=== PATIENT | female | born 2000 | race Caucasian/White ===

== ENCOUNTER 2023-07-07 03:42 | Emergency (ER) | payer OTHER, SELFPAY ==
--- NOTE | 2023-07-07 03:51 | ED.URI ---
HPI - URI/Sore Throat General Chief Complaint: Upper Respiratory Symptoms Stated Complaint: sore throat, difficulty breathing Time Seen by Provider: 07/07/23 03:44 Source: patient and RN notes reviewed Mode of arrival: Ambulatory Limitations: no limitations History of Present Illness HPI Narrative: 23-year-old female on Concerta has only daily medication for ADHD. Patient presents with about 5 days of nasal congestion, cough, sore throat, hoarseness and started developing some chest discomfort. Patient states no fevers. Has had little bit of ear pressure but no pain. Throat has been sore but no difficulty with breathing in the floor. Patient has been quite hoarse. Has had nonproductive cough. Feels tight some discomfort in the upper chest with cough. No nausea or vomiting. [place] short of breath when lying flat but felt better upright and with coughing. Patient denies any diarrhea constipation, no urinary symptoms. No abdominal back or flank pain. No rash. Patient states concerned as they are only daily medication. No prior surgeries. No known drug allergies. No tobacco, no alcohol, no illicit. Related Data Allergies Allergy/AdvReac Type Severity Reaction Status Date / Time No Known Drug Allergies Allergy Verified 07/07/23 04:13 Review of Systems Review of Systems ROS Unobtainable: All systems reviewed & are unremarkable except as noted in HPI and below Patient History Social History Smoking Status: Never smoker Exam Narrative Exam Narrative: GEN: well nourished, well appearing female, alert and oriented x 3, patient appears to be in mild distress. HEENT: Atraumatic, pupils are equal round reactive to light, extraocular movements are intact, nares are clear, TMs are clear with no fluid, left TM is slightly retracted, no bulge bilaterally with good light reflex bilaterally. There is no conjunctival pallor. Throat has mild bilateral tonsillar enlargement, no uvular deviation, bilateral cervical lymphadenopathy. Patient is quite hoarse, no stridor difficulty with swallowing secretions. No exudates on bilateral tonsils. HEART: Regular rate and rhythm without murmur, clicks, rubs. LUNGS:Lungs clear to auscultation, no wheezes, rales, crackles, chest moves symmetrically, no tachypnea, no accessory muscle use. Patient has a dry cough. ABD:bowel sounds normal, soft, non-tender, no guarding, rebound, rigidity, no masses noted, no hepatosplenomegaly :No CVA tenderness MSCL: Non-tender, no muscle atrophy, muscles strength 5/5 upper and lower extremities, full range of motion, normal gait NEURO:CN 2-12 intact, sensation normal SKIN: No rash, erythema or other skin changes noted. Initial Vital Signs Initial Vital Signs: Vital Signs Temperature 97.6 F 07/07/23 03:53 Pulse Rate 80 07/07/23 03:53 Respiratory Rate 15 07/07/23 03:53 Blood Pressure 142/83 H 07/07/23 03:53 Pulse Oximetry 99 07/07/23 03:53 Oxygen Delivery Method Room Air 07/07/23 03:53 Course Orders Ordered: ED Orders 07/07/23 03:50 Strep Grp A by PCR Rapid Stat Discontinued Medications Dexamethasone (Dexamethasone 10 Mg/Ml Vial) 10 mg PO NOW ONE Stop: 07/07/23 04:09 Last Admin: 07/07/23 04:13 Dose: 10 mg Vital Signs Vital signs: Vital Signs - 8 hr 07/07/23 03:53 07/07/23 04:23 Temperature 97.6 F 97.4 F L Pulse Rate 80 82 Respiratory Rate 15 18 Blood Pressure 142/83 H 127/83 Pulse Oximetry 99 98 Oxygen Delivery Method Room Air Room Air MDM - URI/Sore Throat Lab Data Labs: Lab Results 07/07/23 Range/Units 03:50 Group A Strep (PCR) Negative (Negative) MDM Narrative Medical decision making narrative: 23-year-old female who likely has viral pharyngitis, rapid strep was negative, throat culture was sent. Patient was given 1 dose of oral dexamethasone. No wheezing or other changes on examination that would make me suspect pneumonia. Patient and I reviewed throat culture will take several days to result if positive would be contacted for antibiotics was given a dose of oral dexamethasone. Patient did not meet [facility] Criteria for oral antibiotics. Discussed return precautions all questions answered. Discharge Plan Departure Patient Disposition: Home Clinical Impression: Pharyngitis Instructions: DI for Pharyngitis/Tonsillopharyngitis -- Adult Activity Restrictions/Additional Instructions: Follow-up for recheck as needed, your rapid strep was negative throat culture is currently pending this takes 2-3 days to result and if positive you will be contacted to start antibiotics. You did receive a dose of oral dexamethasone, 10 mg. You may take Tylenol up to a 1000 mg every 6 hours and/or ibuprofen up to 600 mg every 6 hours. Please return for rapidly worsening symptoms, fevers, swelling in throat, airway, inability to swallow your saliva or secretions, new or worsening chest pain or shortness of breath, persistent vomiting, passing out, new swelling in extremities, rash or skin changes or other new or concerning changes. Referrals: ProviderCaden [Primary Care Provider] - Stand Alone Forms: Patient Portal/API, Work Release Note
[2023-07-07 03:53] VITALS: BP 142/83; PULSE 80; RESP 15; TEMP 36.4; O2SAT 99; BMI 24.7
[2023-07-07 04:04] LABS: Strep Grp A by PCR Rapid Negative (Negative)
[2023-07-07] MEDS: DEXAMETHASONE 10 MG/ML VIAL PO (04:13)
[2023-07-07 04:23] VITALS: BP 127/83; PULSE 82; RESP 18; TEMP 36.3; O2SAT 98
== END 2023-07-07 04:28 | disposition home or self-care (01) ==
PROVIDERS: Emergency Provider Emergency Medicine
DX: J02.9 Acute pharyngitis, unspecified (principal)
CPT/HCPCS: 87651; 99283; J1100

== ENCOUNTER 2023-07-13 09:23 | Emergency (ER) | payer OTHER, SELFPAY ==
[2023-07-13 09:32] VITALS: BP 116/63; PULSE 110; RESP 16; TEMP 36.7; O2SAT 100; BMI 24.7
--- NOTE | 2023-07-13 09:37 | DI.RAD.S_ITS ---
PROCEDURE: XR CHEST 2V INDICATIONS: cough x 2 weeks TECHNIQUE: 2 views of the chest were acquired. COMPARISON: None. FINDINGS: Surgical changes and devices: None. Lungs and pleura: Lungs are clear. No pleural effusions or pneumothorax. Mediastinum: Mediastinal contours are normal. Heart size is normal. Bones and chest wall: No suspicious bony abnormalities. Soft tissues appear unremarkable. IMPRESSION: No acute cardiopulmonary abnormality is seen. Dictated by: Donnell Kenyon M.D. on 07/13/2023 at 10:17 Approved by: Donnell Kenyon M.D. on 07/13/2023 at 10:17
[2023-07-13] MEDS: ONDANSETRON 4 MG/2 ML INJ IV (10:00)
[2023-07-13] MEDS: SODIUM CHLORIDE 0.9% 1,000 ML 1000 ML IV (10:00)
[2023-07-13 10:05] VITALS: BP 100/63; PULSE 97; RESP 20; O2SAT 95
[2023-07-13 10:21] LABS: Hematocrit 37.7 % (36-46); Hemoglobin 12.8 g/dL (12.0-16.0); Mean Corpuscular Hemoglobin 30.3 PG (26-34); Mean Corpuscular Volume 89.1 fL (80-100); Platelet Count 310 X10^3/uL (150-400); Red Blood Cell Count 4.24 X10^6/uL (4.0-5.2); Red Cell Distribution Width 12.9 % (11.6-14.8); White Blood Cell Count 15.3 X10^3/uL (4.5-11.0)
[2023-07-13 10:23] LABS: Add Manual Diff / Slide Review YES
[2023-07-13 10:29] LABS: INR 1.4 (0.9-1.3); Prothrombin Time 15.6 SECONDS (10.1-12.7)
[2023-07-13 10:32] LABS: PTT Partial Thromboplastin Tim 28 SECONDS (26-36)
[2023-07-13 10:34] LABS: Lactate (Lactic Acid) 1.1 mmol/L (0.7-2.1)
[2023-07-13 10:35] LABS: Alanine Aminotransferase 21 IU/L (<35); Albumin 3.9 g/dL (3.5-5.0); Albumin Globulin Ratio 1.1 (1.0-2.8); Alkaline Phosphatase 70 U/L (38-126); Aspartate Aminotransferase 27 IU/L (14-36); BUN Creatinine Ratio 16.5 (6-22); Bilirubin Total 0.2 mg/dL (0.2-1.3); Blood Urea Nitrogen 13 mg/dL (7-17); Calcium 9.1 mg/dL (8.4-10.2); Carbon Dioxide 22 mmol/L (22-32); Chloride 98 mmol/L (98-107); Estimated Glomerular Filt Rate > 60 mL/min (>60); Globulin 3.5 g/dL (1.7-4.1); Glucose 106 mg/dL (70-100); HEMOLYSIS < 15 (0-50); Lipase 46 U/L (23-300); Potassium 3.8 mmol/L (3.4-5.1); Sodium 131 mmol/L (137-145); Total Protein 7.4 g/dL (6.3-8.2)
[2023-07-13 10:48] LABS: Adenovirus Not Detected (Not Detect); B. parapertussis Not Detected (Not Detecte); Bordetella pertussis Not Detected (Not Detect); Chlamydophila pneumoniae Not Detected (Not Detect); Coronavirus 229E Not Detected (Not Detect); Coronavirus HKU1 Not Detected (Not Detect); Coronavirus NL 63 Not Detected (Not Detect); Coronavirus OC43 Not Detected (Not Detect); Human Metapneumovirus Not Detected (Not Detect); Human Rhinovirus/Enterovirus Not Detected (Not Detect); Influenza A Not Detected (Not Detect); Influenza B Not Detected (Not Detect); Mycoplasma pneumoniae Not Detected (Not Detect); Parainfluenza Virus 1 Not Detected (Not Detect); Parainfluenza Virus 2 Not Detected (Not Detect); Parainfluenza Virus 3 Not Detected (Not Detect); Parainfluenza Virus 4 Not Detected (Not Detect); Respiratory Syncytial Virus Not Detected (Not Detect); SARS- CoV-2 Not Detected (Not Detecte)
[2023-07-13 10:52] LABS: Procalcitonin 0.37 ng/mL (<0.5)
[2023-07-13 10:54] LABS: Neutrophils Absolute Manual 12087 /uL (3000-5900); Total Cells Counted 100
[2023-07-13 10:55] LABS: RBC Morphology Normal Morphology
[2023-07-13 11:21] VITALS: BP 100/60; PULSE 83; RESP 18; TEMP 37.6; O2SAT 98
[2023-07-13 11:49] LABS: Bacteria Urine Moderate (10-30); RBC Urine 1-5/HPF (0-5/HPF); Squamous Epithelial Cell Urine 1-5 /HPF (0-5/HPF); WBC Urine 10-30/HPF (0-5/HPF)
[2023-07-13 14:58] VITALS: BP 113/65; PULSE 73; RESP 20; TEMP 36.9; O2SAT 99
--- NOTE | 2023-07-13 15:30 | ED_ITS ---
HPI - Fever <Sunita Peck PA-C - Last Filed: 07/13/23 15:37> General Chief Complaint: Fever Stated Complaint: sent by PCP for Upper Resp Symptoms Time Seen by Provider: 07/13/23 09:44 Source: patient Mode of arrival: Ambulatory History of Present Illness HPI Narrative: Patient is a 23-year-old with 2 weeks of sore throat and cough. Seen twice for the same over the past 2 weeks, treated with p.o. steroid for sore throat and [id number] cold medicines. She presents today after going to her primary care for assessment with a very hoarse voice, although her sore throat is improved, continued fevers especially at night, frequent cough that is becoming more dry, and generally not feeling well. She denies any chest pain, nausea vomiting, dysuria. She is only short of breath when coughing. Related Data Previous Rx's Medication Instructions Recorded codeine 10 mg-guaifenesin 100 mg/5 10 ml PO Q6H PRN cough #120 mL 07/13/23 mL oral liquid sulfamethoxazole 800 1 tab PO BID #10 tabs 07/13/23 mg-trimethoprim 160 mg tablet (Bactrim DS) Allergies Allergy/AdvReac Type Severity Reaction Status Date / Time No Known Drug Allergies Allergy Verified 07/07/23 04:13 Review of Systems <Sunita Peck PA-C - Last Filed: 07/13/23 15:37> Review of Systems ROS Unobtainable: All systems reviewed & are unremarkable except as noted in HPI and below Patient History <Sunita Peck PA-C - Last Filed: 07/13/23 15:37> Social History Smoking Status: Never smoker Smoking Status: Never smoker alcohol intake frequency: 0-2 drinks per day Substance Use Type: does not use Exam <Sunita Peck PA-C - Last Filed: 07/13/23 15:37> Narrative Exam Narrative: GENERAL: 23 year old patient appears stated age. Well-developed patient, in no distress. Appears fatigued. NEURO: AOx3. HEAD: Atraumatic. Normocephalic. EYES: Pupils equal round and reactive. Extraocular motions intact. No scleral icterus. No injection or drainage. ENT: Nose without bleeding or purulent drainage. Throat with erythema, no tonsillar hypertrophy or exudate. Airway patent. NECK: Trachea midline. Non tender CARDIOVASCULAR: Regular rate and rhythm without murmurs, gallops, or rubs. RESPIRATORY: Diminished but clear to auscultation. Breath sounds equal bilaterally. No wheezes, rales, or rhonchi. GASTROINTESTINAL: Abdomen soft, non-tender, nondistended. Positive right CVA tenderness. EXTREMITIES: No edema or joint tenderness. SKIN: No rash or erythema of visible areas Initial Vital Signs Initial Vital Signs: Vital Signs Temperature 98.1 F 07/13/23 09:32 Pulse Rate 110 H 07/13/23 09:32 Respiratory Rate 16 07/13/23 09:32 Blood Pressure 116/63 07/13/23 09:32 Pulse Oximetry 100 07/13/23 09:32 Oxygen Delivery Method Room Air 07/13/23 09:32 <Vianca Mace DO - Last Filed: 07/13/23 19:25> Initial Vital Signs Initial Vital Signs: Vital Signs Temperature 98.1 F 07/13/23 09:32 Pulse Rate 110 H 07/13/23 09:32 Respiratory Rate 16 07/13/23 09:32 Blood Pressure 116/63 07/13/23 09:32 Pulse Oximetry 100 07/13/23 09:32 Oxygen Delivery Method Room Air 07/13/23 09:32 Course <Sunita Peck PA-C - Last Filed: 07/13/23 15:37> Orders Ordered: ED Orders 07/13/23 11:30 Urine Culture Stat Urine Microscopic Stat Discontinued Medications Ceftriaxone Sodium (Ceftriaxone 2,000 Mg Vial) 1,000 mg IM NOW ONE Stop: 07/13/23 15:30 Last Admin: 07/13/23 15:44 Dose: Not Given Documented By: KLSheng Sodium Chloride (Normal Saline 0.9%) 1,000 mls @ 1,000 mls/hr IV BOLUS ONE Stop: 07/13/23 10:36 Last Infusion: 07/13/23 11:19 Dose: Infused Documented By: Admin: 07/13/23 10:00 Dose: 1,000 mls/hr Documented By: KLSheng Ceftriaxone Sodium 1,000 mg/ (Sodium Chloride) 100 mls @ 200 mls/hr IV NOW ONE Stop: 07/13/23 15:44 Last Infusion: 07/13/23 16:14 Dose: Infused Documented By: Admin: 07/13/23 15:50 Dose: 200 mls/hr Documented By: NYDIA Ondansetron HCl (Ondansetron 4 Mg/2 Ml Inj) 4 mg IV NOW PRN PRN Reason: Nausea And Vomiting Last Admin: 07/13/23 10:00 Dose: 4 mg Documented By: ROMAN Ondansetron HCl (Ondansetron 4 Mg Odt) 4 mg SL NOW PRN PRN Reason: Nausea And Vomiting Vital Signs Vital signs: Vital Signs - 8 hr 07/13/23 14:58 07/13/23 16:15 Temperature 98.4 F 98.5 F Pulse Rate 73 82 Respiratory Rate 20 18 Blood Pressure 113/65 108/68 Pulse Oximetry 99 98 Oxygen Delivery Method Room Air <Vianca Mace DO - Last Filed: 07/13/23 19:25> Orders Ordered: ED Orders 07/13/23 11:30 Urine Culture Stat Urine Microscopic Stat Discontinued Medications Ceftriaxone Sodium (Ceftriaxone 2,000 Mg Vial) 1,000 mg IM NOW ONE Stop: 07/13/23 15:30 Last Admin: 07/13/23 15:44 Dose: Not Given Documented By: ROMAN Sodium Chloride (Normal Saline 0.9%) 1,000 mls @ 1,000 mls/hr IV BOLUS ONE Stop: 07/13/23 10:36 Last Infusion: 07/13/23 11:19 Dose: Infused Documented By: Admin: 07/13/23 10:00 Dose: 1,000 mls/hr Documented By: ROMAN Ceftriaxone Sodium 1,000 mg/ (Sodium Chloride) 100 mls @ 200 mls/hr IV NOW ONE Stop: 07/13/23 15:44 Last Infusion: 07/13/23 16:14 Dose: Infused Documented By: Admin: 07/13/23 15:50 Dose: 200 mls/hr Documented By: NYDIA Ondansetron HCl (Ondansetron 4 Mg/2 Ml Inj) 4 mg IV NOW PRN PRN Reason: Nausea And Vomiting Last Admin: 07/13/23 10:00 Dose: 4 mg Documented By: ROMAN Ondansetron HCl (Ondansetron 4 Mg Odt) 4 mg SL NOW PRN PRN Reason: Nausea And Vomiting Vital Signs Vital signs: Vital Signs - 8 hr 07/13/23 14:58 07/13/23 16:15 Temperature 98.4 F 98.5 F Pulse Rate 73 82 Respiratory Rate 20 18 Blood Pressure 113/65 108/68 Pulse Oximetry 99 98 Oxygen Delivery Method Room Air MDM - Fever <Sunita Peck PA-C - Last Filed: 07/13/23 15:37> Lab Data 07/13/23 09:55 07/13/23 09:55 Labs: Lab Results 07/13/23 07/13/23 07/13/23 Range/Units 09:40 09:55 11:30 WBC 15.3 H (4.5-11.0) X10^3/uL RBC 4.24 (4.0-5.2) X10^6/uL Hgb 12.8 (12.0-16.0) g/dL Hct 37.7 (36-46) % MCV 89.1 (80-100) fL MCH 30.3 (26-34) PG MCHC 34.0 (30-36) % RDW 12.9 (11.6-14.8) % Plt Count 310 (150-400) X10^3/uL Neut % (Auto) Not Reportable Lymph % (Auto) Not Reportable Sawyer % (Auto) Not Reportable Eos % (Auto) Not Reportable Baso % (Auto) Not Reportable Lymph # (Auto) Not Reportable [place]yer # (Auto) Not Reportable Baso # (Auto) Not Reportable Total Counted 100 Seg Neutrophils % 79.0 H (38-70) % Lymphocytes % (Manual) 10.0 L (25-45) % Monocytes % (Manual) 10.0 (2-11) % Basophils % (Manual) 1.0 (0-1) % Neutrophils # (Manual) 15655 H (9991-4699) /uL RBC Morphology Normal morphology PT 15.6 H (10.1-12.7) SECONDS INR 1.4 H (0.9-1.3) APTT 28 (26-36) SECONDS Sodium 131 L (137-145) mmol/L Potassium 3.8 (3.4-5.1) mmol/L Chloride 98 (98-107) mmol/L Carbon Dioxide 22 (22-32) mmol/L BUN 13 (7-17) mg/dL Creatinine 0.79 (0.52-1.04) mg/dL Estimated GFR > 60 (>60) mL/min BUN/Creatinine Ratio 16.5 (6-22) Glucose 106 H (70-100) mg/dL Lactate 1.1 (0.7-2.1) mmol/L Calcium 9.1 (8.4-10.2) mg/dL Total Bilirubin 0.2 (0.2-1.3) mg/dL AST 27 (14-36) IU/L ALT 21 (<35) IU/L Alkaline Phosphatase 70 (38-126) U/L Total Protein 7.4 (6.3-8.2) g/dL Albumin 3.9 (3.5-5.0) g/dL Globulin 3.5 (1.7-4.1) g/dL Albumin/Globulin Ratio 1.1 (1.0-2.8) Lipase 46 (23-300) U/L Procalcitonin 0.37 (<0.5) ng/mL Urine RBC 1-5/hpf (0-5/HPF) Urine WBC 10-30/hpf H (0-5/HPF) Ur Squamous Epith Cells 1-5 /hpf (0-5/HPF) Urine Bacteria Moderate (10-30) H (None) Ur Culture Indicated? TNP Chlamy pneumoniae PCR Not detected (Not Detect) Adenovirus (PCR) Not detected (Not Detect) B.parapertussis DNA PCR Not detected (Not Detecte) Coronavirus OC43 (PCR) Not detected (Not Detect) Coronavirus HKU1 (PCR) Not detected (Not Detect) Coronavirus 229E (PCR) Not detected (Not Detect) SARS-CoV-2 (PCR) Not detected (Not Detecte) Coronavirus NL63 (PCR) Not detected (Not Detect) Human Metapneumovir PCR Not detected (Not Detect) Influenza Type A (PCR) Not detected (Not Detect) Influenza Type B (PCR) Not detected (Not Detect) M. pneumoniae (PCR) Not detected (Not Detect) Parainfluenza 1 (PCR) Not detected (Not Detect) Parainfluenza 2 (PCR) Not detected (Not Detect) Parainfluenza 3 (PCR) Not detected (Not Detect) Parainfluenza 4 (PCR) Not detected (Not Detect) RSV (PCR) Not detected (Not Detect) Entero/Rhino (PCR) Not detected (Not Detect) Point of Care Testing Test Results Negative Urine Dip Bedside Urine Glucose Negative Bedside Urine Bilirubin - Negative Bedside Urine Ketone +/- 5 Urine Specific [place] 1.010 Bedside Urine Occult Blood +/- Bedside Urine pH 6.0 Bedside Urine Protein - Negative Bedside Urine Urobilinogen +/- 1mg Bedside Urine Nitrite + Positive Bedside Urine Leukocytes +/- 15 Esterase Imaging Data Chest x-ray: Radiologist's Impression: PROCEDURE: XR CHEST 2V INDICATIONS: cough x 2 weeks TECHNIQUE: 2 views of the chest were acquired. COMPARISON: None. FINDINGS: Surgical changes and devices: None. Lungs and pleura: Lungs are clear. No pleural effusions or pneumothorax. Mediastinum: Mediastinal contours are normal. Heart size is normal. Bones and chest wall: No suspicious bony abnormalities. Soft tissues appear unremarkable. IMPRESSION: No acute cardiopulmonary abnormality is seen. Dictated by: Donnell Kenyon M.D. on 07/13/2023 at 10:17 Approved by: Donnell Kenyon M.D. on 07/13/2023 at 10:17 [facility] Narrative Medical decision making narrative: Multiple etiologies for patient's symptoms considered including, but not limited to: Pharyngitis, bronchitis, pneumonia, UTI, pyelonephritis Patient is a previously healthy 23-year-old who has had 2 weeks of upper respiratory symptoms that persist with daily fevers. She denies any travel overseas or any unusual exposures. She has had no rash. Her workup today shows a leukocytosis with white count 15k and left shift, otherwise labs without clinically significant abnormality. Chest x-ray without evidence of infiltrate or other pathology. Her urine does look infected although she denies any dysuria but she has significant right CVA tenderness on exam. Difficult to assess as she also has these upper respiratory symptoms but this maybe causing her continued fevers and malaise. We will treat for pyelonephritis with IM ceftriaxone now and p.o. antibiotics at home. Also prescribing codeine cough syrup for cough suppression. Work note given; I would advise her to stay home and rest as much as she possibly can until she is feeling better. If things do not improve after another 5 days, she should return for reassessment. Patient's symptoms improved over duration of stay with above-stated therapies. Findings and discharge diagnosis discussed with patient/family followed by verbalization of understanding Return precautions discussed with patient/family whom verbalize understanding of diagnosis and plan <Vianca Mace, DO - Last Filed: 07/13/23 19:25> Lab Data Labs: Lab Results 07/13/23 07/13/23 07/13/23 Range/Units 09:40 09:55 11:30 WBC 15.3 H (4.5-11.0) X10^3/uL RBC 4.24 (4.0-5.2) X10^6/uL Hgb 12.8 (12.0-16.0) g/dL Hct 37.7 (36-46) % MCV 89.1 (80-100) fL MCH 30.3 (26-34) PG MCHC 34.0 (30-36) % RDW 12.9 (11.6-14.8) % Plt Count 310 (150-400) X10^3/uL Neut % (Auto) Not Reportable Lymph % (Auto) Not Reportable Sawyer % (Auto) Not Reportable Eos % (Auto) Not Reportable Baso % (Auto) Not Reportable Lymph # (Auto) Not Reportable [place]yer # (Auto) Not Reportable Baso # (Auto) Not Reportable Total Counted 100 Seg Neutrophils % 79.0 H (38-70) % Lymphocytes % (Manual) 10.0 L (25-45) % Monocytes % (Manual) 10.0 (2-11) % Basophils % (Manual) 1.0 (0-1) % Neutrophils # (Manual) 68839 H (5002-1442) /uL RBC Morphology Normal morphology PT 15.6 H (10.1-12.7) SECONDS INR 1.4 H (0.9-1.3) APTT 28 (26-36) SECONDS Sodium 131 L (137-145) mmol/L Potassium 3.8 (3.4-5.1) mmol/L Chloride 98 (98-107) mmol/L Carbon Dioxide 22 (22-32) mmol/L BUN 13 (7-17) mg/dL Creatinine 0.79 (0.52-1.04) mg/dL Estimated GFR > 60 (>60) mL/min BUN/Creatinine Ratio 16.5 (6-22) Glucose 106 H (70-100) mg/dL Lactate 1.1 (0.7-2.1) mmol/L Calcium 9.1 (8.4-10.2) mg/dL Total Bilirubin 0.2 (0.2-1.3) mg/dL AST 27 (14-36) IU/L ALT 21 (<35) IU/L Alkaline Phosphatase 70 (38-126) U/L Total Protein 7.4 (6.3-8.2) g/dL Albumin 3.9 (3.5-5.0) g/dL Globulin 3.5 (1.7-4.1) g/dL Albumin/Globulin Ratio 1.1 (1.0-2.8) Lipase 46 (23-300) U/L Procalcitonin 0.37 (<0.5) ng/mL Urine RBC 1-5/hpf (0-5/HPF) Urine WBC 10-30/hpf H (0-5/HPF) Ur Squamous Epith Cells 1-5 /hpf (0-5/HPF) Urine Bacteria Moderate (10-30) H (None) Ur Culture Indicated? TNP Chlamy pneumoniae PCR Not detected (Not Detect) Adenovirus (PCR) Not detected (Not Detect) B.parapertussis DNA PCR Not detected (Not Detecte) Coronavirus OC43 (PCR) Not detected (Not Detect) Coronavirus HKU1 (PCR) Not detected (Not Detect) Coronavirus 229E (PCR) Not detected (Not Detect) SARS-CoV-2 (PCR) Not detected (Not Detecte) Coronavirus NL63 (PCR) Not detected (Not Detect) Human Metapneumovir PCR Not detected (Not Detect) Influenza Type A (PCR) Not detected (Not Detect) Influenza Type B (PCR) Not detected (Not Detect) M. pneumoniae (PCR) Not detected (Not Detect) Parainfluenza 1 (PCR) Not detected (Not Detect) Parainfluenza 2 (PCR) Not detected (Not Detect) Parainfluenza 3 (PCR) Not detected (Not Detect) Parainfluenza 4 (PCR) Not detected (Not Detect) RSV (PCR) Not detected (Not Detect) Entero/Rhino (PCR) Not detected (Not Detect) Point of Care Testing Test Results Negative Urine Dip Bedside Urine Glucose Negative Bedside Urine Bilirubin - Negative Bedside Urine Ketone +/- 5 Urine Specific [place] 1.010 Bedside Urine Occult Blood +/- Bedside Urine pH 6.0 Bedside Urine Protein - Negative Bedside Urine Urobilinogen +/- 1mg Bedside Urine Nitrite + Positive Bedside Urine Leukocytes +/- 15 Esterase Discharge Plan Departure Patient Disposition: Home Clinical Impression: Pyelonephritis Pharyngitis Qualifiers: Pharyngitis/tonsillitis etiology: other specified organisms Qualified Code(s): J02.8 - Acute pharyngitis due to other specified organisms Instructions: DI for Kidney Infection, DI for Viral Pharyngitis Activity Restrictions/Additional Instructions: *You have been diagnosed with viral pharyngitis and bronchitis and a urinary tract infection. Because you have pain in your right flank along with the fever, I am concerned that you may have an infection that is spreading from your urinary tract up into your kidney. You will be given a dose of intramuscular antibiotics in the emergency room and then oral antibiotics for home. I have also prescribed a cough syrup to be taken at home. *What to do: *Please continue to take your regular medications as directed. [X] New medication prescriptions sent to your pharmacy: [[facility] ] [ ] New medication written as a paper prescription [ ] No new medications given *Please follow up with your primary care provider in 2-3 days, call for an appointment. Let them know you were seen in the Emergency Department and that we ask that you be seen in follow up. We will electronically transmit a record of today's note if your PCP is in our system *If you do not have a primary care provider please contact the [facility] Resource line at [phone]. They will ask some questions about your medical history and help get you set up with a doctor in the community. *Return to Emergency Department if you should have any new, worsening or concerning symptoms, such as [fever greater than 101 F, shaking chills, worsening pain, persistent vomiting or other concerning symptoms]. Prescriptions: New sulfamethoxazole-trimethoprim [Bactrim DS] 800-160 mg tablet 1 tab PO BID Qty: 10 0RF codeine-guaifenesin 10-100 mg/5 mL liquid 10 ml PO Q6H PRN (Reason: cough) Qty: 120 0RF Referrals: Provider,Caden TANNER [Primary Care Provider] - Stand Alone Forms: Patient Portal/API, Work Release Note ED Sign-out <Vianca Mace, DO - Last Filed: 07/13/23 19:25> Cosign ED Attending Cosignature Attestation: I was immediately available in the department for consultation. Documentation has been reviewed.
[2023-07-13] MEDS: cefTRIAXone 1,000 MG in SODIUM CHLORIDE 0.9% 100 ML 200 MG IV (15:50)
[2023-07-13 16:15] VITALS: BP 108/68; PULSE 82; RESP 18; TEMP 36.9; O2SAT 98
== END 2023-07-13 16:15 | disposition home or self-care (01) ==
PROVIDERS: Emergency Medicine; Emergency Provider Physician Assistant
DX: N12 Tubulo-interstitial nephritis, not specified as acute or chronic (principal); J02.8 Acute pharyngitis due to other specified organisms; Z20.822 Contact with and (suspected) exposure to COVID-19
CPT/HCPCS: 36415; 71046; 80053; 81003; 81015; 81025; 83605; 83690; 84145; 85007; 85025; 85610; 85730; 87040; 87077; 87086; 87186; 87633; 96361; 96365; 96375; 99284; J0696; J2405